=== PATIENT | male | born 1960 | race Caucasian/White ===

== ENCOUNTER 2018-07-27 11:36 | Emergency (ER) | payer MEDICARE, OTHER ==
[~2018-07-27] VITALS: Ht 182.9 cm; Wt 102.1 kg
--- NOTE | 2018-07-27 12:01 | Emergency Room Report ---
History of Present Illness General Chief Complaint: Multiple Trauma/Fall Source: Patient (BowenStephanie LEWIS) Present Illness HPI Patient present with complains of pain to the left flank lower rib cage pain Started yesterday after tripping and falling to the ground Denies any lapse of consciousness denies any midline pain in the back denies any focal weakness of the upper or lower extremities denies any chest pain or shortness of breath pain is worse with touch Denies any pleurisy or peritoneal-type complaints (Stephanie Wiseman DO) Allergies: Coded Allergies: No Known Allergies (Unverified , 07/27/18) Patient History Past Medical History: see triage record Pertinent Family History: none Reviewed Nursing Documentation: PMH: Agreed; PSxH: Agreed (Stephanie Wiseman DO) Nursing Documentation-PMH Past Medical History: No History, Except For Hx COPD: Yes History Of Psychiatric Problem: Yes (Stephanie Wiseman DO) Review of Systems All Other Systems: negative except mentioned in HPI (Stephanie Wiseman DO) Physical Exam Vital Signs Date Time Temp Pulse Resp B/P (MAP) Pulse Ox O2 Delivery O2 Flow Rate FiO2 07/27/18 11:41 97.7 59 20 107/66 96 Room Air Sp02 EP Interpretation: reviewed, normal General Appearance: well appearing, no apparent distress Head: normocephalic, atraumatic Eyes: bilateral eye PERRL, bilateral eye EOMI ENT: normal pharynx Neck: supple, other - Kyphosis Respiratory: lungs clear, no retraction, no accessory muscle use Cardiovascular #1: regular rate, rhythm Gastrointestinal: non tender, soft Musculoskeletal: other - Tender on palpation of the lower rib cage line at the mid insulin Neurologic: alert, oriented x3, responsive Skin: normal color, no rash Lymphatic: no adenopathy (Stephanie Wiseman DO) Medical Decision Making Diagnostic Impression: Primary Impression: Contusion of rib on left side Qualified Codes: S20.212A - Contusion of left front wall of thorax, initial encounter Additional Impressions: Aneurysm of infrarenal abdominal aorta Fall Qualified Codes: W19.XXXA - Unspecified fall, initial encounter ER Course Hospital Course 58-year-old male presents with left lower rib pain status post fall Clinical course Patient initially seen and evaluated by Dr. Wiseman; please see his note for full history and physical CT shows no evidence of rib fracture and no splenic injury. Incidental finding notes a 3.7 cm infrarenal aortic aneurysm I discussed findings with patient. Patient has no abdominal pain. No pulsatile mass. Has history of hypertension and hypercholesterolemia I explained that there is no acute intervention at this time. This needs to be followed. I'll provide him with CT report. He needs to follow-up with his PMD. States he has a PMD. patient displays understanding Diagnosis - contusin of rib on left side, aneurysm of intrarenal abdominal aortic, fall Stable and discharged to home with prescription for Motrin. apply ice, keep elevated. weight bear as tolerated. Followup with PMD. Return to ED if symptoms recur or worsen (Aubrey Park MD) CT/MRI/US Diagnostic Results CT/MRI/US Diagnostic Results : Imaging Test Ordered: CT A/P Impression Mild bilateral lower lobe subsegmental atelectasis. Splenomegaly at 13.8 cm. The adrenal glands and liver are normal. Fatty atrophy of the pancreas. Infrarenal abdominal aortic aneurysm at 3.7 cm. Bilateral renal cyst seen largest in the right kidney measures 3.4 cm the largest in the left kidney measures 2.5 cm no hydroureteronephrosis. The kidneys otherwise normal. Sigmoid diverticula without diverticulitis. No obstruction. Normal appendix. No acute fracture. (Aubrey Park MD) Last Vital Signs Date Time Temp Pulse Resp B/P (MAP) Pulse Ox O2 Delivery O2 Flow Rate FiO2 07/27/18 11:41 97.7 59 20 107/66 96 Room Air (Stephanie Wiseman DO) Status: improved (Aubrey Park MD) Disposition: HOME, SELF-CARE Condition: Stable Scripts Ibuprofen* (MOTRIN*) 600 Mg Tablet 600 MG ORAL Q8H PRN for For Pain, #30 TAB 0 Refills Prov: Aubrey Park MD 07/27/18 Stephanie Wiseman DO Jul 27, 2018 12:01 Aubrey Park MD Jul 27, 2018 15:52
[2018-07-27 12:02] VITALS: BP 107/66
--- NOTE | 2018-07-27 12:05 | NUR ---
ED Nurse Note:pt. reported having left ribs pain after falling yesterday
[2018-07-27 14:30] VITALS: BP 109/68
[2018-07-27] MEDS ORDERED: IBUPROFEN600 MG ORAL (14:56)
--- NOTE | 2018-07-27 15:20 | NUR ---
ED Nurse Note:pt. had CT scan done, pt. received d/c instructions with prescriptions andleft home with steady gait
[2018-07-27 15:25] VITALS: BP 109/68
--- NOTE | 2018-07-28 09:49 | Diagnostic Imaging Report ---
Indication: Abdominal pain Technique: Continuous helical transaxial imaging of the abdomen and pelvis was obtained from the lung bases to the pubic symphysis. No intravenous contrast was administered. Coronal 2-D reformats were also obtained. Automatic Exposure Control was utilized. Total Dose length Product (DLP): 918.[address] Dose Index Volume (CTDIvol): 15.91 mGy Comparison: none Findings: Appendix is normal. There are bilateral renal hypodensities that are probably cysts. Aortoiliac calcifications are present. There is a small fusiform aneurysm of the lower abdominal aorta measuring 3.9 cm. There is no free fluid. No renal stones, hydronephrosis, gallstones identified. IMPRESSION: No acute findings appreciated. 3.9 cm fusiform aneurysm of the lower abdominal aorta. Normal appendix Multiple incidental findings as above The CT scanner at [facility] is accredited by the [employer] and the scans are performed using dose optimization techniques as appropriate to a performed exam including Automatic Exposure control.
== END 2018-07-27 15:30 | disposition home or self-care (01) ==
LOC: EMR 12:31
DX: S20.212A Contusion of left front wall of thorax, initial encounter (principal); W01.0XXA Fall on same level from slipping, tripping and stumbling without subsequent striking against object, initial encounter; Y92.89 Other specified places as the place of occurrence of the external cause; I71.4 Abdominal aortic aneurysm, without rupture; J44.9 Chronic obstructive pulmonary disease, unspecified
CPT/HCPCS: 74176; 99284